=== PATIENT | female | born 1940 | race Caucasian/White ===

== ENCOUNTER → 2018-05-04 03:44 | Outpatient (CLI) | payer MEDICARE, BC, SELFPAY ==
[2018-05-04 21:28] LABS: T3,Free 3.5 pg/ml (2.8-5.3)
== END ==
PROVIDERS: PCP Family Medicine; Visit Provider Family Medicine
DX: E03.9 Hypothyroidism, unspecified (principal)
CPT/HCPCS: 36415; 84481

== ENCOUNTER → 2018-05-18 01:52 | Outpatient (CLI) | payer MEDICARE, BC, SELFPAY ==
--- NOTE | 2018-05-18 13:24 | DI.REPORT_ITS ---
SYMPTOM/DIAGNOSIS: SCREENING, Z12.31 MAMMOGRAMS: Mammograms were interpreted according to the usual protocol including computer analysis with CAD system, tomosynthesis and C view imaging. Comparison is made with exams from [id number]. The breasts are composed of scattered fibroglandular densities, breast density, category B. No suspicious masses or suspicious microcalcifications are seen. There has been no significant change. IMPRESSION: Category 1B, negative mammogram. Routine screening is recommended. [facility] ASSESSMENT OF FINDINGS: Negative. Category 1. Patient will receive a letter notifying them of these results. BI-RADS category B. There are scattered areas of fibroglandular density.
== END ==
PROVIDERS: PCP Family Medicine; Visit Provider Family Medicine
DX: Z12.31 Encounter for screening mammogram for malignant neoplasm of breast (principal)
CPT/HCPCS: 77063; 77067

== ENCOUNTER 2019-04-13 00:17 | Outpatient (CLI) | payer MEDICARE, BC, SELFPAY ==
--- NOTE | 2019-04-13 14:00 | MERGE_ITS ---
*[facility]* *[facility]* [address] [place] [address] Date of study: 04/13/2019 Transthoracic Echocardiography M-mode, complete 2D, complete spectral Doppler, and color Doppler *STUDY CONCLUSIONS* Summary: 1. Left ventricle: The cavity size was normal. Wall thickness was normal. Systolic function was normal. The estimated ejection fraction was 60-65%. Wall motion was normal; there were no regional wall motion abnormalities. Findings consistent with diastolic dysfunction. Doppler parameters are consistent with high ventricular filling pressure. 2. Aortic valve: Mildly calcified annulus. Trileaflet; normal thickness leaflets. There was mild regurgitation. 3. Right ventricle: The cavity size was normal. Wall thickness was normal. Systolic function was normal. *PATIENT PRESENTATION* Height: 139.7cm (55in ) S/D Pressure: 131 / 82 Weight: 56.7kg (124.7lb ) BSA: 1.51m^2 Test start time: 02:40 PM. Test stop time: 03:40 PM. PERFORMING Unknown PERFORMING [facility] CONSULTING Katie Karimi ORDERING Katie Karimi REFERRING Katie Karimi [employer] MACHINE OPERATOR Mali Meade, (R)(DIANA), [facility] *PROCEDURE DATA* Procedure information: This study was interpreted by [facility]. Pertinent images and digital data are archived for permanent storage and are available for subsequent review. Comparison was made to the study of 12/11/2011. Study status: Routine. Transthoracic echocardiography. M-mode, complete 2D, complete spectral Doppler, and color Doppler. A Transthoracic Echocardiogram was performed. Scanning was performed from the parasternal, apical, subcostal, and suprasternal notch acoustic windows. Images were obtained using an [id number] cardiac ultrasound machine. Image quality was adequate. Study completion: The patient tolerated the procedure well. There were no complications. History: PMH: Murmur r01.1. *CARDIAC ANATOMY* Left ventricle: The cavity size was normal. Wall thickness was normal. Systolic function was normal. The estimated ejection fraction was 60-65%. Wall motion was normal; there were no regional wall motion abnormalities. Findings consistent with diastolic dysfunction. Doppler parameters are consistent with high ventricular filling pressure. Aortic valve: Mildly calcified annulus. Trileaflet; normal thickness leaflets. Mobility was not restricted. Doppler: Transvalvular velocity was within the normal range. There was no stenosis. There was mild regurgitation. VTI ratio of LVOT to aortic valve: 0.69. Valve area (VTI): 2.1cm^2. Indexed valve area (VTI): 1.4cm^2/m^2. Peak velocity ratio of LVOT to aortic valve: 0.57. Valve area (Vmax): 1.7cm^2. Indexed valve area (Vmax): 1.1cm^2/m^2. Mean velocity ratio of LVOT to aortic valve: 0.6. Valve area (Vmean): 1.8cm^2. Indexed valve area (Vmean): 1.2cm^2/m^2. Mean gradient (S): 5.9mm Hg. Peak gradient (S): 10.5mm Hg. Aorta: Aortic root: The aortic root was normal in size. Ascending aorta: The ascending aorta was normal in size. Mitral valve: Structurally normal valve. Mobility was not restricted. Doppler: Transvalvular velocity was within the normal range. There was no evidence for stenosis. There was no significant regurgitation. Valve area by pressure half-time: 2.5cm^2. Indexed valve area by pressure half-time: 1.7cm^2/m^2. Peak gradient (D): 2.4mm Hg. Left atrium: The atrium was normal in size. Right ventricle: The cavity size was normal. Wall thickness was normal. Systolic function was normal. Pulmonic valve: Doppler: Transvalvular velocity was within the normal range. There was no evidence for stenosis. There was no significant regurgitation. Peak gradient (S): 2.3mm Hg. Tricuspid valve: Structurally normal valve. Doppler: Transvalvular velocity was within the normal range. There was no evidence for stenosis. There was no significant regurgitation. Pulmonary artery: Systolic pressure could not be accurately estimated. Right atrium: The atrium was normal in size. Pericardium: There was no pericardial effusion. Systemic veins: Inferior vena cava: Well visualized. The vessel was patent and normal in size. Respirophasic changes in dimension were absent. Measurements Left ventricle Value Reference LV ID, ED, PLAX 3.5 cm 3.5 - 6.0 LV ID, ES, PLAX 2.1 cm 2.1 - 4.0 LV PW thickness, ED, PLAX 1.1 cm LV end-diastolic volume, 1-p A2C 45 ml LV ejection fraction, 1-p A2C 74 % LV end-diastolic volume, 1-p A4C 85 ml LV ejection fraction, 1-p A4C 56 % LV e', lateral 0.04 m/sec LV E/e', lateral 19 LV e', medial 0.048 m/sec LV E/e', medial 16 LV e', average 0.044 m/sec LV E/e', average 18 Ventricular septum Value Reference IVS thickness, ED, PLAX 0.9 cm LVOT Value Reference LVOT ID, A-P 2.0 cm LVOT area 3 cm^2 LVOT peak velocity, S 0.93 m/sec LVOT mean velocity, S 0.7 m/sec LVOT VTI, S 22.8 cm LVOT peak gradient, S 3.5 mm Hg LVOT mean gradient, S 2.1 mm Hg Stroke volume (SV), LVOT DP 68 ml Stroke index (SV/bsa), LVOT DP 45 ml/m^2 Aortic valve Value Reference Aortic valve peak velocity, S 1.6 m/sec Aortic valve mean velocity, S 1.2 m/sec Aortic valve VTI, S 33.0 cm Aortic mean gradient, S 5.9 mm Hg Aortic peak gradient, S 10.5 mm Hg VTI ratio, LVOT/AV 0.69 Aortic valve area, VTI 2.1 cm^2 Velocity ratio, peak, LVOT/AV 0.57 Aortic valve area, peak velocity 1.7 cm^2 Velocity ratio, mean, LVOT/AV 0.6 Aortic valve area, mean velocity 1.8 cm^2 Aortic valve area/bsa, mean velocity 1.2 cm^2/m^2 Aorta Value Reference Aortic root ID, ED 3.3 cm Ascending aorta ID, A-P, S 3.2 cm Left atrium Value Reference LA ID, A-P, ES 1.6 cm LA ID/bsa, A-P 1.1 cm/m^2 <=2.2 LA volume/bsa, ES, 1-p A4C 45 ml/m^2 LA volume, ES, 2-p 37 ml LA volume/bsa, ES, 2-p 24 ml/m^2 LA/aortic root ratio 0.49 Mitral valve Value Reference Mitral E-wave peak velocity 0.77 m/sec Mitral A-wave peak velocity 0.96 m/sec Mitral deceleration time (H) 304 ms 150 - 230 Mitral pressure half-time 88 ms Mitral peak gradient, D 2.4 mm Hg Mitral E/A ratio, peak 0.8 Mitral valve area, PHT, DP 2.5 cm^2 Tricuspid valve Value Reference Tricuspid regurg peak velocity 2.4 m/sec Tricuspid peak RV-RA gradient 23.6 mm Hg Right atrium Value Reference RA area, ES, A4C 11.7 cm^2 8.3 - 19.5 Pulmonic valve Value Reference Pulmonic peak gradient, S 2.3 mm Hg Legend: (L) and (H) snehal values outside specified reference range. I have personally reviewed the images and have reviewed and edited the reported findings. Electronically signed by Ganga Hackett 04/13/2019 16:15
== END 2019-04-13 00:37 ==
PROVIDERS: PCP Family Medicine; Visit Provider Internal Medicine
DX: R01.1 Cardiac murmur, unspecified (principal); I50.1 Left ventricular failure, unspecified; I35.1 Nonrheumatic aortic (valve) insufficiency; I10 Essential (primary) hypertension
CPT/HCPCS: 93306

== ENCOUNTER 2019-06-06 01:07 | Outpatient (CLI) | payer MEDICARE, BC, SELFPAY ==
[2019-06-06 09:46] LABS: HCT 39.3 % (36.0-46.0); HGB 12.2 g/dL (12.0-15.5); Mean Corpuscular Hemoglobin 29.8 pg (27.0-33.0); Mean Corpuscular Volume 95.9 fL (80-95); Mean Platelet Volume 10.3 fL (8.0-11.0); Platelet Count 230 x1000/uL (130-400); White Blood Cell Count 4.24 k/cumm (4.4-10.8)
[2019-06-06 11:10] LABS: BUN 24 mg/dL (7-18); CREATININE 0.95 mg/dL (0.55-1.02); Calcium 9.2 mg/dL (8.5-10.1); Calculated LDL 113 mg/dL; Cholesterol 213 mg/dL (50-200); Estimated GFR 56.75 (mL/min/1.73m2); Glucose 104 mg/dL (70-100); HDL Cholesterol 94 mg/dL (40-60); Triglyceride 33 mg/dL (30-150)
[2019-06-06 11:11] LABS: Anion Gap 7.1 mmol/L (3-11); CO2 30.9 mmol/L (21.0-32.0); Chloride 105 mmol/L (98-107); Potassium 4.2 mmol/L (3.5-5.1); Sodium 143 mmol/L (136-145); TSH 0.73 uIU/mL (0.36-3.74)
== END 2019-06-06 01:27 ==
PROVIDERS: PCP Family Medicine; Visit Provider Family Medicine
DX: I10 Essential (primary) hypertension (principal)
CPT/HCPCS: 36415; 80048; 80061; 85027; 84443

== ENCOUNTER 2019-06-22 01:05 | Outpatient (CLI) | payer MEDICARE, BC, SELFPAY ==
--- NOTE | 2019-06-22 13:18 | DI.MAMMO_ITS ---
EXAM: MG MAMMO SCREENING CLINICAL HISTORY: screening, Z12.39. TECHNIQUE: Mammograms were interpreted according to the usual protocol including computer analysis w [employer] CAD system, tomosynthesis and C-view imaging. COMPARISON: Comparison is made with prior exams. FINDINGS: The breasts are of moderate radiodensity. There is no evidence of a mass. There are no suspicious ca lcifications and there has been no significant interval change when compared with prior images. IMPRESSION: No evidence of malignancy, category 1. Yearly screening mammography is recommended. BI-RADS categor y B. BI-RADS Cat 1 - Negative. Breast Density - Category B - Scattered areas of fibroglandular density.
== END 2019-06-22 01:25 ==
PROVIDERS: PCP Family Medicine; Visit Provider Family Medicine
DX: Z12.31 Encounter for screening mammogram for malignant neoplasm of breast (principal)
CPT/HCPCS: 77063; 77067

== ENCOUNTER 2020-03-25 15:38 | Emergency (ER) | payer MEDICARE, BC, SELFPAY ==
[2020-03-25] VITALS (12 sets, daily range): BP systolic 109–158; BP diastolic 51–79; PULSE 61–83; RESP 12–27; TEMP 36.8–37; O2SAT 91–99
--- NOTE | 2020-03-25 15:46 | ED.GENADUL_ITS ---
Discharge Plan Disposition Patient Disposition: HOME Condition: Stable Discharge Details Chief Complaint: Abd Prob Clinical Impression: Constipation, Acute pulmonary embolism Primary Care Provider: Maurice Mclaughlin ED Provider: Grisel Pineda Home Meds and New Rx's Prescriptions: New Eliquis 5 mg tablet See Rx Instructions .ROUTE .COMPLEX 30 Days Qty: 60 RF: 0 Continued albuterol sulfate [ProAir HFA] 90 mcg/actuation HFA aerosol inhaler 2 puff Inhalation Q6H PRN Qty: 1 RF: 11 multivitamin 1 EACH tablet 1 ea PO DAILY RF: 0 ibuprofen 200 MG capsule 200 mg PO PRN RF: 0 ergocalciferol (vitamin D2) 400 UNIT tablet 2 tab PO BID RF: 0 aspirin [Aspir-81] 81 MG tablet,delayed release (DR/EC) 81 mg PO DAILY RF: 0 docusate sodium [Colace] 100 MG capsule 100 mg PO BID Qty: 180 RF: 4 calcium citrate malate-vit D3 1 EACH tablet 2 ea PO BID RF: 0 magnesium amino acid chelate 100 MG tablet 2 tab PO DAILY RF: 0 SPACER 1 ea Miscellaneous Qty: 1 RF: 0 Psyllium [Metamucil] 1 EACH packet 1 ea PO DAILY PRN RF: 0 gabapentin 100 mg capsule 100 mg PO HS Qty: 90 RF: 3 bupropion HCl [Wellbutrin SR] 150 mg tablet sustained-release 12 hr 150 mg PO BID Qty: 180 RF: 4 losartan-hydrochlorothiazide [Hyzaar] 50-12.5 mg tablet 1 tab PO QAM Qty: 90 RF: 4 triamcinolone acetonide 0.1 % cream 1 applic Topical BID PRN (Reason: dermatitis) Qty: 30 RF: 3 tafwzsjzso-wbfpkyspjhseg-nspp 50-325-40 mg tablet 1 tab PO DAILY PRN (Reason: pain) Qty: 30 RF: 3 levothyroxine [Synthroid] 88 mcg tablet 88 mcg PO DAILY Qty: 90 RF: 4 Discharge Instructions Instructions: Pulmonary Embolism (ED), Constipation (ED) Additional Instructions: Drink plenty of fluids and get plenty of rest. You can try xbgo-rvm-zycekuc suppositories, stool softeners, MiraLAX or magnesium citrate for your constipation as needed. Take the Eliquis as directed. You will start with taking 10 mg twice daily for 7 days total then take 5 mg twice daily until directed to stop by her primary care doctor. You will receive a call from care management regarding a follow-up appoint with your primary care doctor for reevaluation this week and for continued management of your Eliquis for your pulmonary embolism. Return immediately to the emergency department if you develop any worsening or concerning symptoms such as fever, chest pain, shortness of breath, vomiting or any other concerns. Discharge Data Discharge Date/Time-TO BE ENTERED AT DEPARTURE: 03/25/20 21:10 Discharge Physician: Grisel Pineda Medical Decision Making 1550 -- 79-year-old female with history of COPD, hypertension, hyperlipidemia and previous PE in 2001 treated with coumadin who presents for constipation for the past 4 days and urinary retention today. Abdomen soft and tender across lower aspect. Bladder scan ~700cc. Pt had significant relief after straight cath. Patient referred for labs and imaging to rule out bowel obstruction or acute infectious process. 1800 -- Labs reviewed and unremarkable. Normal white blood cell count. UA negative. Pt was able to urinate on her own here. CT imaging noted constipation and mild fecal impaction but also noted a right lower lobe PE. Patient has no complaint of chest pain, shortness of breath with oxygen saturation in mid to high 90s and normal respiratory rate, heart rate and blood pressure. She was referred for CT chest which notes PE within right upper, middle and lower lobes. No evidence of right heart strain. Patient was offered admission, but patient states she would prefer to go home. Case discussed with hospitalist. As patient has no complaint of chest pain or shortness of breath, will plan to treat with PO Eliquis. She was given 1 dose of 10 mg Eliquis here as well as 2 doses for home. Patient placed on care management follow-up list for follow-up appointment with her primary care doctor within the next week for reassessment. 1944 -- She was also given an enema at bedside as well as rectal digital disimpaction with relief of her rectal discomfort and constipation. Patient feels good to go home Advised to follow up with the primary care doctor for re-evaluation. Usual and customary return precautions given prior to discharge. Medical Records Medical records reviewed: Yes I reviewed the patient's medical records. Imaging Data Radiologic Study: Radiologist's impression: CT Abdomen And Pelvis With Contrast Exam date and time: 03/25/2020 5:14 PM Age: 79 years old Clinical indication: Other: Constiption, urinary retention, R/O sbo TECHNIQUE: Imaging protocol: Computed tomography of the abdomen and pelvis with intravenous contrast. Radiation optimization: All CT scans at this facility use at least one of these dose optimization techniques: automated exposure control; mA and/or kV adjustment per patient size (includes targeted exams where dose is matched to clinical indication); or iterative reconstruction. Contrast material: OMNIPAQUE 350; Contrast volume: 80 ml; Contrast route: INTRAVENOUS (IV); COMPARISON: No relevant prior studies available. FINDINGS: Lungs: The visualized portions of the lung bases demonstrate no acute disease. Liver: 8 mm hypodense lesion in the right hepatic lobe on image 350 series 6 is too small to characterize but most probably benign representing a small cyst. There is mild periportal edema. The liver appears otherwise unremarkable. Gallbladder and bile ducts: No acute gallbladder pathology. Pancreas: Normal. No ductal dilation. Spleen: Normal. No splenomegaly. Adrenals: Normal. No mass. Kidneys and ureters: Bilateral sub 6 mm hypodense renal lesions are too small to characterize but most probably benign representing cysts. No follow-up is recommended at this time. No acute renal findings. No obstructive uropathy. Stomach and bowel: No bowel wall thickening, obstruction, or other acute pathology. Diffuse colonic diverticulosis is present. There is excessive colonic stool content. Significant amount of fecal material at the rectum. Appendix: No evidence of appendicitis. Intraperitoneal space: Unremarkable. No free air. No significant fluid collection. Vasculature: Filling defects in the visualized right lower lobe proximal pulmonary arterial branches, compatible with pulmonary emboli. The vasculature demonstrates diffuse moderate atherosclerotic calcification. Lymph nodes: Unremarkable. No enlarged lymph nodes. Bladder: Unremarkable as visualized. Reproductive: Unremarkable as visualized. Bones/joints: Severe thoracolumbar scoliosis. No acute abnormality or aggressive osseous lesion. Soft tissues: Unremarkable. IMPRESSION: 1. Acute pulmonary emboli in the right lower lobe proximal segmental branches. Further evaluation with dedicated PE protocol CT is recommended. 2. Severe constipation and mild rectal fecal impaction. No definitive evidence of bowel obstruction appreciated at this time. 3. No other acute abdominopelvic pathology is otherwise seen. 4. Other chronic/incidental findings as detailed above. CT Angiography Chest With Contrast Exam date and time: 03/25/2020 5:43 PM Age: 79 years old Clinical indication: Other: Rle pe noted, evaluate further TECHNIQUE: Imaging protocol: Computed tomographic angiography of the chest with intravenous contrast. 3D rendering: MIP and/or 3D reconstructed images were created by the technologist. Radiation optimization: All CT scans at this facility use at least one of these dose optimization techniques: automated exposure control; mA and/or kV adjustment per patient size (includes targeted exams where dose is matched to clinical indication); or iterative reconstruction. Contrast material: OMNIPAQEU 350; Contrast volume: 59 ml; Contrast route: INTRAVENOUS (IV); COMPARISON: No relevant prior studies available. FINDINGS: Pulmonary arteries: Acute pulmonary emboli are present within the right upper lobe posterior segmental branch as well as the right middle lobe medial segmental branch and multiple right lower lobe segmental and subsegmental branches. Aorta: No aortic aneurysm. No aortic dissection. Lungs: Left basilar subsegmental dependent atelectasis. Pleural space: No pneumothorax. No pleural effusion. Heart: No cardiomegaly. No pericardial effusion. No evidence of right ventricular strain. Lymph nodes: Unremarkable. No enlarged lymph nodes. Bones/joints: Severe thoracic scoliosis. Soft tissues: Unremarkable. IMPRESSION: Acute pulmonary emboli as described above with overall mild clot burden and no evidence of right ventricular strain. Lab Data Lab results reviewed: Yes I reviewed the patient's lab results. Labs: Laboratory Tests Range/Units 03/25/20 03/25/20 03/25/20 16:20 16:20 16:20 WBC (4.4-10.8) k/cumm 6.15 RBC (4.00-5.20) m/cumm 4.03 Hgb (12.0-15.5) g/dL 12.7 Hct (36.0-46.0) % 37.9 MCV (80-95) fL 94.0 MCH (27.0-33.0) pg 31.5 MCHC (32.0-36.0) g/dL 33.5 RDW (11.7-14.6) % 13.1 Plt Count (130-400) x1000/uL 218 MPV (8.0-11.0) fL 9.9 Immature Gran % % 0.2 Neutrophils % 82.7 Lymphocytes % 9.6 Monocytes % 6.7 Eosinophils % 0.5 Basophils % 0.3 Absolute Neutrophils (1.2-6.7) k/cumm 5.09 Absolute Lymphocytes (1.2-3.4) k/cumm 0.59 L Absolute Monocytes (0.11-0.7) k/cumm 0.41 Absolute Eosinophils (0.0-0.7) k/cumm 0.03 Absolute Basophils (0.0-0.2) k/cumm 0.02 PT (9.3-11.0) sec 10.5 INR (0.9-1.1) 1.0 APTT (21.0-31.4) sec 36.2 H Sodium (136-145) mmol/L 139 Potassium (3.5-5.1) mmol/L 3.6 Chloride (98-107) mmol/L 103 Carbon Dioxide (21.0-32.0) mmol/L 30.9 Anion Gap (3-11) mmol/L 5.1 BUN (7-18) mg/dL 16 Creatinine (0.55-1.02) mg/dL 1.05 H Estimated GFR/1.73 m2 (mL/min/1.73m2) 50.43 Glucose (74-106) mg/dL 99 Calcium (8.5-10.1) mg/dL 9.0 Magnesium (1.8-2.4) mg/dL Total Bilirubin (0.2-1.0) mg/dL 0.6 AST (15-37) U/L 24 ALT (14-59) U/L 19 Alkaline Phosphatase (46-116) U/L 90 Troponin I (<0.06) ng/mL Total Protein (6.4-8.2) g/dL 6.8 Albumin (3.4-5.0) g/dL 3.5 Urine Color (Yellow) Urine Clarity (Clear) Urine pH (5-8) Ur Specific [place] (1.005-1.025) Urine Protein (Negative) mg/dL Urine Ketones (Negative) mg/dL Urine Blood (Negative) Urine Nitrite (Negative) Urine Bilirubin (Negative) Urine Urobilinogen (Up TO 0.2) EU/dL Ur Leukocyte Esterase (Negative) Urine Glucose (Negative) mg/dL Range/Units 03/25/20 03/25/20 16:20 16:53 WBC (4.4-10.8) k/cumm RBC (4.00-5.20) m/cumm Hgb (12.0-15.5) g/dL Hct (36.0-46.0) % MCV (80-95) fL MCH (27.0-33.0) pg MCHC (32.0-36.0) g/dL RDW (11.7-14.6) % Plt Count (130-400) x1000/uL MPV (8.0-11.0) fL Immature Gran % % Neutrophils % Lymphocytes % Monocytes % Eosinophils % Basophils % Absolute Neutrophils (1.2-6.7) k/cumm Absolute Lymphocytes (1.2-3.4) k/cumm Absolute Monocytes (0.11-0.7) k/cumm Absolute Eosinophils (0.0-0.7) k/cumm Absolute Basophils (0.0-0.2) k/cumm PT (9.3-11.0) sec INR (0.9-1.1) APTT (21.0-31.4) sec Sodium (136-145) mmol/L Potassium (3.5-5.1) mmol/L Chloride (98-107) mmol/L Carbon Dioxide (21.0-32.0) mmol/L Anion Gap (3-11) mmol/L BUN (7-18) mg/dL Creatinine (0.55-1.02) mg/dL Estimated GFR/1.73 m2 (mL/min/1.73m2) Glucose (74-106) mg/dL Calcium (8.5-10.1) mg/dL Magnesium (1.8-2.4) mg/dL 2.0 Total Bilirubin (0.2-1.0) mg/dL AST (15-37) U/L ALT (14-59) U/L Alkaline Phosphatase (46-116) U/L Troponin I (<0.06) ng/mL < 0.05 Total Protein (6.4-8.2) g/dL Albumin (3.4-5.0) g/dL Urine Color (Yellow) Yellow Urine Clarity (Clear) Clear Urine pH (5-8) 7.5 Ur Specific [place] (1.005-1.025) 1.015 Urine Protein (Negative) mg/dL Negative Urine Ketones (Negative) mg/dL Negative Urine Blood (Negative) Negative Urine Nitrite (Negative) Negative Urine Bilirubin (Negative) Negative Urine Urobilinogen (Up TO 0.2) EU/dL 0.2 Ur Leukocyte Esterase (Negative) Negative Urine Glucose (Negative) mg/dL Negative ECG Data Attestation: I personally reviewed and interpreted this ECG (s) as follows: Interpretation: rate of 84, sinus, pacs vs artifact in lateral leads. No acute ST elevation or depression. MN 178, QTc 454, QRS 90. HPI General Mode of arrival: ambulatory . Date/Time Provider Initiated Documentation: 03/25/20 15:44 . Limitations to Documentation: no limitations . Information obtained by: patient . HPI Narrative: Patient is an 79-year-old female who presents the ED with a complaint of constipation for the past 4 days. She states she has been urinating normally as well until today and admits to some lower abdominal pressure. She denies any leg pain, weakness or numbness, saddle anesthesia, bowel or bladder incontinence. She denies any fever, nausea, vomiting or other urinary symptoms. She denies any recent narcotic use. She states she has a history of constipation several years ago for which she required an enema with complete relief. She denies any relief with stool softeners or Metamucil. Related Data Home Medications Medication Instructions Recorded Confirmed Spacer 1 ea MISCELLANEOUS #1 ea 03/21/13 10/21/19 aspirin [Aspir-81] 81 mg PO DAILY tab-cap 03/21/13 03/25/20 calcium citrate malate-vit D3 2 ea PO BID tab 03/21/13 03/25/20 docusate sodium [Colace] 100 mg PO BID #180 tab-cap 03/21/13 03/25/20 ergocalciferol (vitamin D2) 2 tab PO BID tab-cap 03/21/13 10/21/19 ibuprofen 200 mg PO PRN tab-cap 03/21/13 03/25/20 magnesium amino acid chelate 2 tab PO DAILY tab 03/21/13 03/25/20 multivitamin 1 ea PO DAILY tab 03/21/13 03/25/20 Psyllium [Metamucil] 1 ea PO DAILY PRN packet 04/01/13 03/25/20 gabapentin 100 mg capsule 100 mg PO HS #90 cap 02/03/19 03/25/20 bupropion HCl 150 mg tablet,12 hr 150 mg PO BID #180 tab-cap 03/03/19 03/25/20 sustained-release losartan 50 mg-hydrochlorothiazide 1 tab PO QAM #90 tab-cap 03/21/19 03/25/20 12.5 mg tablet triamcinolone acetonide 0.1 % 1 applic TOPICAL BID PRN #30 gm 09/07/19 03/25/20 topical cream albuterol sulfate 90 mcg/actuation 2 puff INHALATION Q6H PRN #1 10/21/19 03/25/20 aerosol inhaler inhaler auhlnutglo-xjurkaxblxgpd-utqixunv 1 tab PO DAILY PRN #30 tab 12/06/19 03/25/20 50 mg-325 mg-40 mg tablet levothyroxine 88 mcg tablet 88 mcg PO DAILY #90 tab-cap 03/08/20 03/25/20 apixaban [Eliquis] See Rx Instructions .ROUTE 03/25/20 .COMPLEX 30 Days #60 tab Previous Rx's Medication Instructions Recorded gabapentin 100 mg capsule 100 mg PO HS #90 cap 02/03/19 bupropion HCl 150 mg tablet,12 hr 150 mg PO BID #180 tab-cap 03/03/19 sustained-release losartan 50 mg-hydrochlorothiazide 1 tab PO QAM #90 tab-cap 03/21/19 12.5 mg tablet triamcinolone acetonide 0.1 % 1 applic TOPICAL BID PRN #30 gm 09/07/19 topical cream albuterol sulfate 90 mcg/actuation 2 puff INHALATION Q6H PRN #1 10/21/19 aerosol inhaler inhaler jwyqfallyb-bnvtjgssyynwf-vwnhwcvj 1 tab PO DAILY PRN #30 tab 12/06/19 50 mg-325 mg-40 mg tablet levothyroxine 88 mcg tablet 88 mcg PO DAILY #90 tab-cap 03/08/20 apixaban [Eliquis] See Rx Instructions .ROUTE 03/25/20 .COMPLEX 30 Days #60 tab Allergies Allergy/AdvReac Type Severity Reaction Status Date / Time adhesive Allergy Mild Unverified 03/25/20 15:53 Penicillins Allergy Unknown RASH Unverified 03/25/20 15:53 Sulfa (Sulfonamide Allergy Unknown Unverified 03/25/20 15:53 Antibiotics) nitrofurantoin AdvReac Unknown ABDOMINAL Unverified 03/25/20 15:53 PAIN, ANOREXIA doxycycline AdvReac Nausea Verified 03/25/20 15:53 Review of Systems All systems reviewed & are unremarkable except as noted in HPI and below Constitutional Constitutional: Reports as per HPI, Denies chills and Denies fever(s) Eyes Eyes: Denies blurry vision ENT Ears, Nose, Mouth, and Throat: Denies dizziness, Denies sore throat and Denies throat swelling Cardiovascular Cardiovascular: Denies chest pain and Denies dyspnea Respiratory Respiratory: Denies cough and Denies dyspnea Gastrointestinal Gastrointestinal: Denies abdominal pain, Reports constipation, Denies diarrhea and Denies vomiting Genitourinary Genitourinary: Denies hematuria and Denies dysuria Musculoskeletal Musculoskeletal: Denies back pain and Denies numbness Integumentary/Breasts Skin/Breast: Denies lesions and Denies rash Neurologic Neurologic: Denies dizziness, Denies localized weakness and Denies numbness Allergic/Immunologic Allergic/Immunologic: Denies throat swelling [facility] Medical History (Updated 03/25/20 @ 19:20 by Grisel Pineda DO) Chronic obstructive lung disease (Inactive) Essential hypertension (Inactive 10/31/13) Hypothyroidism (Inactive 08/27/94) 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 Daughter No problems noted. Maternal Grandfather No problems noted. Paternal Grandfather No problems noted. Maternal Grandmother No problems noted. Paternal Grandmother No problems noted. Social History (Updated 06/01/19 @ 13:52 by Hunter Johnson) Smoking/Tobacco Use Status: Never Alcohol Intake: current Alcohol Intake frequency: a few times a month Alcohol type: wine Drug use: Never Caregiver/Support person: No Household members: none Housing: house Communication Needs: Corrective Lenses Do you need help understanding health information?: Rarely Pets and animals: No Sexually active: No Do you think of yourself as: straight/heterosexual Current gender identity: female What is your relationship status?: How often do you talk on the phone with friends or family?: once per week How often do you get together with friends or relatives?: three or more times per week How often do you attend confucianist or roman catholic services?: 4 or more times per year Do you belong to any clubs or organized social groups?: yes Panel score (0-1 are the most socially isolated patients): 3 What type of physical activity do you participate in: other Duration: 45-60 minutes/day Frequency: 3-4 times per week Deidra/Methodist: Sabianist Special deidra needs: No Seatbelt use: always Helmet use: No Drive intox or ride w/intox yard driver: No Do you feel safe at home: Yes Exam Const General: cooperative and no acute distress Orientation: alert, awake and oriented x3 HENMT Head: normal to inspection Face and sinus: normal facial exam Eyes General: appearance normal, both eyes and all related structures EOM: EOM intact bilaterally Neck Neck: normal visual inspection and No submandibular swelling Lymphatic: no lymphadenopathy noted Chest Chest: normal inspection of the chest and no tenderness Resp Effort & Inspection: normal respiratory effort and able to speak in complete sentences Auscultation: clear to auscultation bilaterally Cardio Rate: regular rate Rhythm: regular rhythm GI Inspection: normal to inspection Palpation: soft, not firm, not rigid and tender suprapubicly Auscultation: hypoactive bowel sounds Rectal Exam - female: other (rectal exam notes stool in rectal vault but w/o erythema, edema, or lesions) Skin General skin exam: no rashes or lesions noted Neuro General: patient alert, patient awake and patient oriented x3 Cognition: normal cognition Speech: speech normal Motor: muscle tone normal throughout Sensory Exam: no sensory deficits noted Extrem General: normal to inspection, full ROM, capillary refill normal, no calf tenderness bilaterally and no edema Psych Appearance: grossly normal Mental Status: mental status grossly normal Speech and Movement: speech and movement normal Affect: normal affect
[2020-03-25] MEDS: Normal Saline Flush 10 ML SYR IVP ×3 (16:20→18:02)
[2020-03-25] MEDS: Normal Saline 500 ML IV ×2 (16:25→18:00)
[2020-03-25 16:30] LABS: Abs Immature Grans 0.01 k/cumm (0.0-0.09); Absolute Basophil Count 0.02 k/cumm (0.0-0.2); Absolute Eosinophil Count 0.03 k/cumm (0.0-0.7); Absolute Lymphocyte Count 0.59 k/cumm (1.2-3.4); Absolute Monocyte Count 0.41 k/cumm (0.11-0.7); Absolute Neutrophil Count 5.09 k/cumm (1.2-6.7); Basophils % 0.3; Eosinophils % 0.5; HCT 37.9 % (36.0-46.0); HGB 12.7 g/dL (12.0-15.5); Immature Grans % 0.2 %; Lymphocytes % 9.6; Mean Corp. HGB Concentration 33.5 g/dL (32.0-36.0); Mean Corpuscular Hemoglobin 31.5 pg (27.0-33.0); Mean Platelet Volume 9.9 fL (8.0-11.0); Monocytes % 6.7; Neutrophils % 82.7; Platelet Count 218 x1000/uL (130-400); RBC 4.03 m/cumm (4.00-5.20); RBC Distribution Width 13.1 % (11.7-14.6); White Blood Cell Count 6.15 k/cumm (4.4-10.8)
[2020-03-25 16:41] LABS: ALT 19 U/L (14-59); AST 24 U/L (15-37); Albumin 3.5 g/dL (3.4-5.0); Alkaline Phosphatase 90 U/L (46-116); Anion Gap 5.1 mmol/L (3-11); BUN 16 mg/dL (7-18); Bilirubin, Total 0.6 mg/dL (0.2-1.0); CO2 30.9 mmol/L (21.0-32.0); CREATININE 1.05 mg/dL (0.55-1.02); Chloride 103 mmol/L (98-107); Estimated GFR 50.43 (mL/min/1.73m2); Glucose 99 mg/dL (74-106); Potassium 3.6 mmol/L (3.5-5.1); Sodium 139 mmol/L (136-145); Total Protein 6.8 g/dL (6.4-8.2)
[2020-03-25 17:03] LABS: Bilirubin Negative (Negative); Blood Negative (Negative); Clarity Clear (Clear); Glucose Negative (Negative); Ketones Negative (Negative); Leukocyte Esterase Negative (Negative); Nitrite Negative (Negative); Specific Gravity 1.015 (1.005-1.025); Urobilinogen 0.2 EU/dL (Up TO 0.2); pH 7.5 (5-8)
[2020-03-25] MEDS: Omnipaque 350 MG/ML 100 ML BTL IJ ×2 (17:15→18:01)
--- NOTE | 2020-03-25 17:15 | DI.CT_ITS ---
EXAM: CT ABDOMEN PELVIS W CLINICAL HISTORY: constipation, urinary retention, r/o SBO TECHNIQUE: Imaging Protocol: Axial computed tomography images with coronal and sagittal reformatted images were created and reviewed CONTRAST MATERIAL: Intravenous: Omnipaque 350 Contrast volume:80 mL Oral: No COMPARISON: No exams were available for comparison FINDINGS: ABDOMEN: Lung Bases: There are filling defects seen in pulmonary artery branches in the right lower lobe consi stent with acute pulmonary emboli. Liver: Normal density. There is a 8 mm hypodense lesion in the inferior aspect of the right lobe of t he liver. It is too small for further characterization but likely reflects a small cyst. Portal, Superior Mesenteric, and Splenic Veins: Unremarkable. Gallbladder and Biliary Tract: No radiodense calculus or dilation. Pancreas: Normal density, no abnormal calcifications or inflammatory process. Spleen: Normal. Adrenals: No masses seen. Kidneys: Normal size, contour and axis. Bilateral nephrolithiasis. No obstructive uropathy. Tiny hy podensities seen in the kidneys. They are too small for further characterization but likely reflect small cysts. Abdominal Aorta: Abdominal portion non-dilated. Atherosclerosis. Bowel: No obstruction or bowel wall thickening. No evidence of acute appendicitis. Colonic diverticu losis but no evidence of acute diverticulitis. There is a large amount of stool seen throughout the colon. There is a large amount of stool in the rectal vault. Peritoneal Cavity: No ascites, collection or mesenteric inflammatory response. Lymph Nodes: Within normal limits. Bones: There is a marked S-type thoracolumbar scoliosis. Multilevel degenerative changes are present throughout the spine. Degenerative changes are seen in the hips bilaterally. Soft Tissues: Unremarkable. PELVIS: Bladder: Symmetric distention, no gross wall thickening. Reproductive Organs: The patient appears to be status post hysterectomy. Please correlate clinically . Lymph Nodes: Within normal limits. Bones: Please see above. IMPRESSION: 1. Acute pulmonary emboli in the right lower lobe. PE CT scan is recommended. 2. Findings of constipation with rectal fecal impaction. No evidence of obstruction. RADIATION DOSE DELIVERED: Total DLP DATA REPOSITORY: All CT scans at this facility are submitted to the National Radiology Data Registry (NRDR) Dose Index Registry (DIR) with the [employer] ([employer]). RADIATION OPTIMIZATION: All CT scans at this facility use at least one of these dose optimization te chniques: automated exposure control; mA and/or kV adjustment per patient size (includes targeted exa ms where dose is matched to clinical indication); or iterative reconstruction.
[2020-03-25] MEDS: Normal Saline - Diluent 50 ML VIAL IV ×2 (17:16→18:02)
--- NOTE | 2020-03-25 17:38 | DI.VRAD_ITS ---
Addendum created by Fly Dutton MD on 03/25/2020 5:40:08 PM EDT THIS REPORT CONTAINS FINDINGS THAT MAY BE CRITICAL TO PATIENT CARE. The findings were verbally communicated via telephone conference with hanny peres at 5:40 PM EDT on 03/25/2020. The findings were acknowledged and understood. Initial report created on 03/25/2020 5:37:40 PM EDT PROCEDURE INFORMATION: Exam: CT Abdomen And Pelvis With Contrast Exam date and time: 03/25/2020 5:14 PM Age: 79 years old Clinical indication: Other: Constiption, urinary retention, R/O sbo TECHNIQUE: Imaging protocol: Computed tomography of the abdomen and pelvis with intravenous contrast. Radiation optimization: All CT scans at this facility use at least one of these dose optimization techniques: automated exposure control; mA and/or kV adjustment per patient size (includes targeted exams where dose is matched to clinical indication); or iterative reconstruction. Contrast material: OMNIPAQUE 350; Contrast volume: 80 ml; Contrast route: INTRAVENOUS (IV); COMPARISON: No relevant prior studies available. FINDINGS: Lungs: The visualized portions of the lung bases demonstrate no acute disease. Liver: 8 mm hypodense lesion in the right hepatic lobe on image 350 series 6 is too small to characterize but most probably benign representing a small cyst. There is mild periportal edema. The liver appears otherwise unremarkable. Gallbladder and bile ducts: No acute gallbladder pathology. Pancreas: Normal. No ductal dilation. Spleen: Normal. No splenomegaly. Adrenals: Normal. No mass. Kidneys and ureters: Bilateral sub 6 mm hypodense renal lesions are too small to characterize but most probably benign representing cysts. No follow-up is recommended at this time. No acute renal findings. No obstructive uropathy. Stomach and bowel: No bowel wall thickening, obstruction, or other acute pathology. Diffuse colonic diverticulosis is present. There is excessive colonic stool content. Significant amount of fecal material at the rectum. Appendix: No evidence of appendicitis. Intraperitoneal space: Unremarkable. No free air. No significant fluid collection. Vasculature: Filling defects in the visualized right lower lobe proximal pulmonary arterial branches, compatible with pulmonary emboli. The vasculature demonstrates diffuse moderate atherosclerotic calcification. Lymph nodes: Unremarkable. No enlarged lymph nodes. Bladder: Unremarkable as visualized. Reproductive: Unremarkable as visualized. Bones/joints: Severe thoracolumbar scoliosis. No acute abnormality or aggressive osseous lesion. Soft tissues: Unremarkable. IMPRESSION: 1. Acute pulmonary emboli in the right lower lobe proximal segmental branches. Further evaluation with dedicated PE protocol CT is recommended. 2. Severe constipation and mild rectal fecal impaction. No definitive evidence of bowel obstruction appreciated at this time. 3. No other acute abdominopelvic pathology is otherwise seen. 4. Other chronic/incidental findings as detailed above. Dictated and Authenticated by: Fly Dutton MD. Ordering:AMAURY Recinos MD
[2020-03-25 18:06] LABS: PTT Activated 36.2 sec (21.0-31.4); Prothrombin Time 10.5 sec (9.3-11.0)
--- NOTE | 2020-03-25 18:10 | DI.CT_ITS ---
EXAM: CT CHEST PE CTA CLINICAL HISTORY: RLE PE noted, evaluate further. TECHNIQUE: Imaging Protocol: Axial CT angiography was performed with multi-slice acquisition and mu lti-planar and/or 3D reconstructions. CONTRAST MATERIAL: Intravenous: Omnipaque 350 Contrast volume:59 mL COMPARISON: CT CT ABDOMEN PELVIS W from 03/25/2020 FINDINGS: Pulmonary Arteries: Filling defects are seen in branches of the right upper, middle and lower lobe pu lmonary arteries consistent with acute pulmonary emboli. Tracheobronchial tree: Patent where visualized. Mediastinum and Shelley: No dominant adenopathy or fluid collection. Pulmonary parenchyma: There is an area of consolidation in the left lower lobe. This may represent a telectasis. Pneumonia cannot be excluded. Please correlate clinically. No architectural distortion . Pleura: No effusion or pneumothorax. Heart: The heart is not dilated. No coronary artery calcifications are seen. No evidence of right hea rt strain or pericardial effusion. Aorta: Thoracic aorta non-dilated. No evidence of dissection or aneurysm. Upper abdomen: Please see the report of the CT scan of the abdomen and pelvis performed earlier in . Bones: There is a marked scoliosis of the thoracolumbar spine. Degenerative changes are seen in the spine. IMPRESSION: Acute pulmonary emboli involving the right upper, middle and lower lobes. No evidence of right heart strain. RADIATION DOSE DELIVERED: Total DLP Total DLP DATA REPOSITORY: All CT scans at this facility are submitted to the National Radiology Data Registry (NRDR) Dose Index Registry (DIR) with the [employer] (ACR). RADIATION OPTIMIZATION: All CT scans at this facility use at least one of these dose optimization te chniques: automated exposure control; mA and/or kV adjustment per patient size (includes targeted exa ms where dose is matched to clinical indication); or iterative reconstruction.
[2020-03-25 18:11] LABS: Troponin I < 0.05 ng/mL (<0.06)
--- NOTE | 2020-03-25 18:54 | DI.VRAD_ITS ---
PROCEDURE INFORMATION: Exam: CT Angiography Chest With Contrast Exam date and time: 03/25/2020 5:43 PM Age: 79 years old Clinical indication: Other: Rle pe noted, evaluate further TECHNIQUE: Imaging protocol: Computed tomographic angiography of the chest with intravenous contrast. 3D rendering: MIP and/or 3D reconstructed images were created by the technologist. Radiation optimization: All CT scans at this facility use at least one of these dose optimization techniques: automated exposure control; mA and/or kV adjustment per patient size (includes targeted exams where dose is matched to clinical indication); or iterative reconstruction. Contrast material: OMNIPAQEU 350; Contrast volume: 59 ml; Contrast route: INTRAVENOUS (IV); COMPARISON: No relevant prior studies available. FINDINGS: Pulmonary arteries: Acute pulmonary emboli are present within the right upper lobe posterior segmental branch as well as the right middle lobe medial segmental branch and multiple right lower lobe segmental and subsegmental branches. Aorta: No aortic aneurysm. No aortic dissection. Lungs: Left basilar subsegmental dependent atelectasis. Pleural space: No pneumothorax. No pleural effusion. Heart: No cardiomegaly. No pericardial effusion. No evidence of right ventricular strain. Lymph nodes: Unremarkable. No enlarged lymph nodes. Bones/joints: Severe thoracic scoliosis. Soft tissues: Unremarkable. IMPRESSION: Acute pulmonary emboli as described above with overall mild clot burden and no evidence of right ventricular strain. THIS REPORT CONTAINS FINDINGS THAT MAY BE CRITICAL TO PATIENT CARE. The findings were verbally communicated via telephone conference with Dr. Lulu Pineda at 6:50 PM EDT on 03/25/2020. The findings were acknowledged and understood. Dictated and Authenticated by: Timothy Stack MD. Ordering:AMAURY Recinos MD
[2020-03-25] MEDS: Apixaban 5 MG TAB 20 MG PO (19:46)
[2020-03-25] MEDS: Apixaban 5 MG TAB 10 MG PO (19:46)
[2020-03-25] MEDS: ACETAMINOPHEN 1,000 MG/100 ML BTL 400 MG (20:05)
--- NOTE | 2020-03-26 00:29 | NUR.NOTE ---
REFERRAL FAXED TO PCP FOR FOLLOW UP CARE Nursing Note:
== END 2020-03-25 21:10 | disposition home or self-care (01) ==
LOC: ER 20:08
PROVIDERS: Emergency Provider Physician Assistant; PCP Family Medicine
DX: I26.99 Other pulmonary embolism without acute cor pulmonale (principal); Z86.711 Personal history of pulmonary embolism; R33.9 Retention of urine, unspecified; K59.00 Constipation, unspecified; J44.9 Chronic obstructive pulmonary disease, unspecified; I10 Essential (primary) hypertension
CPT/HCPCS: 36415; 51701; 71275; 80053; 93005; 96361; 96365; 99285; 74177; 81003; 83735; 84484; 85025; 85610; 85730; 93010; J0131; J3490

== ENCOUNTER 2020-04-16 02:32 | Outpatient (CLI) | payer MEDICARE, BC, SELFPAY ==
[2020-04-16 15:10] LABS: Anion Gap 4.5 mmol/L (3-11); BUN 19 mg/dL (7-18); CO2 33.5 mmol/L (21.0-32.0); CREATININE 1.04 mg/dL (0.55-1.02); Chloride 104 mmol/L (98-107); Estimated GFR 50.99 (mL/min/1.73m2); Glucose 99 mg/dL (74-106); Sodium 142 mmol/L (136-145)
== END 2020-04-16 02:52 ==
PROVIDERS: PCP Family Medicine; Visit Provider Family Medicine
DX: I10 Essential (primary) hypertension (principal); I25.10 Atherosclerotic heart disease of native coronary artery without angina pectoris
CPT/HCPCS: 36415; 80048

== ENCOUNTER 2020-06-08 03:53 | Outpatient (CLI) | payer MEDICARE, BC, SELFPAY ==
[2020-06-08 12:47] LABS: TSH 0.31 uIU/mL (0.36-3.74)
== END 2020-06-08 04:13 ==
PROVIDERS: PCP Nurse Practitioner; Visit Provider Family Medicine
DX: R60.9 Edema, unspecified (principal)
CPT/HCPCS: 36415; 84443

== ENCOUNTER 2020-06-25 01:54 | Outpatient (CLI) | payer MEDICARE, BC, SELFPAY ==
--- NOTE | 2020-06-25 08:04 | DI.MAMMO_ITS ---
EXAM: MAMMO SCREENING CLINICAL HISTORY: screening,Z12.39 TECHNIQUE: Mammograms were interpreted according to the usual protocol including computer analysis w [employer] CAD system, tomosynthesis and C-view imaging. COMPARISON: 2010 through 2018 FINDINGS: The breasts are composed of scattered fibroglandular densities, Breast Density category B. No suspicious masses or suspicious microcalcifications are seen. No skin thickening or abnormal axillary lymph nodes are seen. There has been no significant change from prior exams. IMPRESSION: BI-RADS Category 1, Negative mammogram Yearly screening mammography is recommended. Breast Density - Category B, scattered fibroglandular densities. A negative radiographic report should not delay biopsy if a dominant or clinically suspicious mass is present. Up to ten percent of cancers are not identified on mammography. A negative report may reinforce clinical impression. Adenosis and dense breasts may obscure an underlying neoplasm. False positive reports average 6 to 10%. Patient will receive a letter notifying them of these results.
== END 2020-06-25 02:14 ==
PROVIDERS: PCP Nurse Practitioner; Visit Provider Family Medicine
DX: Z12.31 Encounter for screening mammogram for malignant neoplasm of breast (principal)
CPT/HCPCS: 77063; 77067

== ENCOUNTER 2020-11-22 10:33 | Outpatient (CLI) | payer MEDICARE, BC, SELFPAY ==
--- NOTE | 2020-11-22 10:00 | DI.RAD_ITS ---
EXAM: XR KNEE RT 4V AP,LAT,MALINDA,PAT CLINICAL HISTORY: rt knee pain. TECHNIQUE: 2D digital imaging was performed. COMPARISON: No exams were available for comparison FINDINGS: There is no evidence of fracture. Small joint effusion. Degenerative changes are noted in the later al compartment. Also significant degenerative changes in the medial aspect of the patellofemoral com partment. There is relative preservation of height of the medial compartment. No osseous lesions. Calcifications are noted posteriorly which are probably in the popliteal artery. IMPRESSION: Osteoarthritic degenerative changes as described above. DATA REPOSITORY: RADIATION DOSE DELIVERED:
== END 2020-11-22 10:34 | disposition home or self-care (01) ==
LOC: DIORS 10:33
PROVIDERS: PCP Nurse Practitioner; Referring Provider Nurse Practitioner; Visit Provider Student in an Organized Health Care Education/Training Program
DX: M17.11 Unilateral primary osteoarthritis, right knee (principal); M25.461 Effusion, right knee; M25.561 Pain in right knee
CPT/HCPCS: 99213; 73564

== ENCOUNTER → 2020-12-21 10:29 | Outpatient (BNVA) | payer MEDICARE, BC, SELFPAY | PROVIDERS: PCP Nurse Practitioner; Referring Provider Chiropractor Orthopedic; Visit Provider Physician Assistant | DX: M17.11 Unilateral primary osteoarthritis, right knee (principal) | CPT/HCPCS: 20610; J1040 ==

== ENCOUNTER → 2021-04-12 08:50 | Outpatient (BNVA) | payer MEDICARE, BC, SELFPAY | PROVIDERS: PCP Nurse Practitioner; Referring Provider Nurse Practitioner; Visit Provider Student in an Organized Health Care Education/Training Program | DX: M17.11 Unilateral primary osteoarthritis, right knee (principal); Z98.890 Other specified postprocedural states | CPT/HCPCS: 99213 ==

== ENCOUNTER 2021-08-12 03:43 | Outpatient (CLI) | payer MEDICARE, BC, SELFPAY ==
[2021-08-12 14:26] LABS: CREATININE 1.1 mg/dL (0.55-1.02); Estimated GFR 47.67 (mL/min/1.73m2); Potassium 4.6 mmol/L (3.5-5.1); TSH 0.39 uIU/mL (0.36-3.74)
== END 2021-08-12 03:44 | disposition home or self-care (01) ==
LOC: LBO 03:43
PROVIDERS: PCP Nurse Practitioner; Visit Provider Nurse Practitioner
DX: I10 Essential (primary) hypertension (principal); E03.9 Hypothyroidism, unspecified
CPT/HCPCS: 36415; 82565; 84132; 84443

== ENCOUNTER 2021-08-29 00:42 | Outpatient (CLI) | payer MEDICARE, BC, SELFPAY ==
--- NOTE | 2021-08-29 15:24 | DI.MAMMO_ITS ---
Exam(s) MAMMO SCREENING EXAM: MAMMO SCREENING CLINICAL HISTORY: screening,z12.39. TECHNIQUE: Bilateral full field digital CC and MLO mammographic images were obtained with 3D tomosyn thesis and utilizing computer aided detection (CAD). COMPARISON: Prior mammograms dating back to 2012, the most recent being May 2020. FINDINGS: There are no CAD designations There are no new spiculated masses nor malignant appearing microcalcification groups. There is no significant architectural distortion nor skin thickening-retraction. IMPRESSION: No radiographic evidence of malignancy. BI-RADS Category 1 - Negative Breast Density - Category B - Scattered areas of fibroglandular density Breast density Category C or D implies that the patient has dense breast tissue. Dense breast tissue can make it harder to find cancer on a mammogram. Dense breast tissue is also associated with an incr eased risk of breast cancer. This information about the result of the mammogram report was provided to the patient to raise their awareness. Use this report when you speak with the patient about their risks for breast cancer, which includes their family history. At that time, you may recommend additional screening tests (Ultrasoun d or MRI) as these tests may add significant information. A negative radiographic report should not delay biopsy if a dominant or clinically suspicious mass is present. Up to ten percent of cancers are not identified on mammography. A negative report may reinforce clinical impression. Adenosis and dense breasts may obscure an underlying neoplasm. False positive reports average 6 to 10%. Patient will receive a letter notifying them of these results.
== END 2021-08-29 01:02 ==
PROVIDERS: PCP Nurse Practitioner; Visit Provider Nurse Practitioner
DX: Z12.31 Encounter for screening mammogram for malignant neoplasm of breast (principal)
CPT/HCPCS: 77063; 77067

== ENCOUNTER 2022-04-14 17:04 | Emergency (ER) | payer MEDICARE, BC, SELFPAY ==
[2022-04-14 17:10] VITALS: BP 125/79; PULSE 107; RESP 20; TEMP 36.6; O2SAT 95
[2022-04-14 17:14] VITALS: RESP 20
--- NOTE | 2022-04-14 17:30 | DI.RAD_ITS ---
Exam(s) XR CHEST 2V PA LATERAL EXAM: XR CHEST 2V PA LATERAL CLINICAL HISTORY: Chemical Inhalation. TECHNIQUE: 2D digital imaging was performed. COMPARISON: CR CHEST 2 VIEWS PA,LAT from 11/20/2011 FINDINGS: 2 views: There is again noted severe scoliosis convex right in the thoracic spine and convex left in the lumba r spine. Also hiatal hernia. Heart size upper normal mediastinum is not widened. Lungs are clear. No infiltrates nor pleural effusions. IMPRESSION: No acute pulmonary findings.Scoliosis again evident. DATA REPOSITORY: RADIATION DOSE DELIVERED:
--- NOTE | 2022-04-14 18:16 | W.ED.GENAD ---
Discharge Plan Disposition Patient Disposition: HOME Condition: Stable Discharge Details Clinical Impression: Accidental exposure to bleach Primary Care Provider: Jayde Preciado ED Provider: Holly Wilkerson Home Meds and New Rx's Prescriptions: Continued rivaroxaban 20 mg tablet 20 mg PO DAILY Qty: 90 4RF Rx Instructions: must administer with evening meal Shingrix (PF) 50 mcg/0.5 mL suspension for reconstitution 0.5 ml IM ONCE Qty: 1 1RF Rx Instructions: as a single dose multivitamin 1 EACH tablet 1 ea PO DAILY ergocalciferol (vitamin D2) 400 UNIT tablet 2 tab PO BID docusate sodium [Colace] 100 MG capsule 100 mg PO BID Qty: 180 calcium citrate malate-vit D3 1 EACH tablet 2 ea PO BID magnesium amino acid chelate 100 MG tablet 2 tab PO DAILY SPACER 1 ea Miscellaneous Qty: 1 Rx Instructions: DX: ASTHMA Psyllium [Metamucil] 1 EACH packet 1 ea PO DAILY PRN albuterol sulfate [ProAir HFA] 90 mcg/actuation HFA aerosol inhaler 2 puff Inhalation Q6H PRN Qty: 1 11RF levothyroxine [Synthroid] 88 mcg tablet 88 mcg PO DAILY Qty: 90 4RF losartan-hydrochlorothiazide [Hyzaar] 50-12.5 mg tablet 1 tab PO QAM Qty: 90 4RF kiuqizcgov-rwacdyemvvefg-uprn 50-300-40 mg capsule 1 cap PO DAILY PRN (Reason: headache) Qty: 30 5RF bupropion HCl [Wellbutrin SR] 150 mg tablet sustained-release 12 hr 150 mg PO BID Qty: 180 4RF No Action triamcinolone acetonide 0.1 % cream 1 applic Topical BID PRN (Reason: dermatitis) Qty: 30 3RF Rx Instructions: Apply to finger Discharge Instructions Instructions: Chemical Skin Burn (ED) Additional Instructions: Accidental bleach inhalation can cause inflammation to your skin. Please return to the ER if you vomit up any thing else like blood or coughed any blood, coffee-ground or any concerns. Please return if you have worsening shortness of breath. Chest x-ray is within normal limits at this time. Follow up with primary care provider in 3-5 days. Return to ED sooner if any worsening or concerns. Increase oral fluids. Referrals: Jayde Preciado, TAR PROCESSING TECHNICIAN [Primary Care Provider] - 5 days Medical Decision Making 81-year-old female presents to the ER with chief complaint of bleach inhalation which occurred 2 hours prior to arrival. Patient reports that she was cleaning her toilets with a new hospital cleaner [employer]ox bleach when her throat began burning and she began coughing. She lives alone and she was afraid so she came to the ER. She does have a history of COPD and scoliosis, PE, hypertension and hypothyroidism, osteoarthritis. She is speaking in full sentences no stridor no wheezes noted no increased work of breathing. She does use albuterol inhaler but she did not use this prior to arrival. The burning in her throat has now subsided. No other associated symptoms. Chest x-ray ordered and dexamethasone 10 mg p.o. ordered. Will instruct patient she can use her albuterol inhaler. Chest x-ray shows no acute allergy to the lung. There is severe scoliosis and arthrosclerotic aorta. Patient has remained hemodynamically stable throughout the remainder of the day. Will discharge patient home with strict return instructions. This text was generated using [employer] system, please disregard any oddities of phrase or misspellings. HPI General Mode of arrival: ambulatory. Date/Time Provider Initiated Documentation: 04/14/22 17:25. Limitations to Documentation: no limitations. Information obtained by: patient, RN notes reviewed and old records reviewed. HPI Narrative: 81-year-old female presents to the ER with chief complaint of bleach inhalation which occurred 2 hours prior to arrival. Patient reports that she was cleaning her toilets with a new hospital cleaner Clorox bleach when her throat began burning and she began coughing. She lives alone and she was afraid so she came to the ER. She does have a history of COPD and scoliosis, PE, hypertension and hypothyroidism, osteoarthritis. She is speaking in full sentences no stridor no wheezes noted no increased work of breathing. She does use albuterol inhaler but she did not use this prior to arrival. The burning in her throat has now subsided. No other associated symptoms. Related Data Home Medications Medication Instructions Recorded Confirmed Spacer 1 ea miscellaneous #1 ea 03/21/13 01/28/22 calcium citrate malate 250 2 ea PO BID 03/21/13 04/14/22 mg-vitamin D3 2.5 mcg (100 unit) tablet docusate sodium 100 mg capsule 100 mg PO BID #180 tab-caps 03/21/13 04/14/22 (Colace) ergocalciferol (vitamin D2) 10 mcg 2 tab PO BID 03/21/13 04/14/22 (400 unit) tablet magnesium amino acid chelate 100 2 tab PO DAILY 03/21/13 04/14/22 mg tablet multivitamin 1 ea PO DAILY 03/21/13 04/14/22 Psyllium [Metamucil] 1 ea PO DAILY PRN 04/01/13 01/28/22 triamcinolone acetonide 0.1 % 1 applic topical BID PRN 09/07/19 04/14/22 topical cream dermatitis #30 grams albuterol sulfate 90 mcg/actuation 2 puff inhalation Q6H PRN ##1 10/02/20 04/14/22 aerosol inhaler (ProAir HFA) rivaroxaban 20 mg tablet 20 mg PO DAILY #90 tabs 08/02/21 04/14/22 levothyroxine 88 mcg tablet 88 mcg PO DAILY #90 tab-caps 11/25/21 04/14/22 (Synthroid) losartan 50 mg-hydrochlorothiazide 1 tab PO QAM #90 tab-caps 11/25/21 04/14/22 12.5 mg tablet (Hyzaar) bqpdguisas-yudjaqmbbjxyw-ldhjtipv 1 cap PO DAILY PRN headache #30 12/05/21 04/14/22 50 mg-300 mg-40 mg capsule tabs varicella-zoster glycoE [id number] 0.5 ml IM ONCE #1 ea 01/28/22 04/14/22 adj(PF) 50 mcg/0.5 mL IM susp, kit (Shingrix (PF)) bupropion HCl 150 mg tablet,12 hr 150 mg PO BID #180 tab-caps 03/10/22 04/14/22 sustained-release (Wellbutrin SR) Previous Rx's Medication Instructions Recorded triamcinolone acetonide 0.1 % 1 applic topical BID PRN 09/07/19 topical cream dermatitis #30 grams albuterol sulfate 90 mcg/actuation 2 puff inhalation Q6H PRN ##1 10/02/20 aerosol inhaler (ProAir HFA) rivaroxaban 20 mg tablet 20 mg PO DAILY #90 tabs 08/02/21 levothyroxine 88 mcg tablet 88 mcg PO DAILY #90 tab-caps 11/25/21 (Synthroid) losartan 50 mg-hydrochlorothiazide 1 tab PO QAM #90 tab-caps 11/25/21 12.5 mg tablet (Hyzaar) vzbrnbwqix-nfenshymeffew-wvirjlxf 1 cap PO DAILY PRN headache #30 12/05/21 50 mg-300 mg-40 mg capsule tabs varicella-zoster glycoE [id number] 0.5 ml IM ONCE #1 ea 01/28/22 adj(PF) 50 mcg/0.5 mL IM susp, kit (Shingrix (PF)) bupropion HCl 150 mg tablet,12 hr 150 mg PO BID #180 tab-caps 03/10/22 sustained-release (Wellbutrin SR) Allergies Allergy/AdvReac Type Severity Reaction Status Date / Time adhesive Allergy Mild Verified 04/14/22 17:13 Penicillins Allergy Unknown RASH Verified 04/14/22 17:13 Sulfa (Sulfonamide Allergy Unknown Verified 04/14/22 17:13 Antibiotics) apixaban Allergy rash Verified 04/14/22 17:13 nitrofurantoin AdvReac Unknown ABDOMINAL Verified 04/14/22 17:13 PAIN, ANOREXIA doxycycline AdvReac Nausea Verified 04/14/22 17:13 General Stated Complaint: ChemExpose TRAVON: 4 Review of Systems All systems reviewed & are unremarkable except as noted in HPI and below ENT Ears, Nose, Mouth, and Throat: Reports sore throat Respiratory Respiratory: Reports cough and Denies hemoptysis PFSH All Active Problems (Updated 04/14/22 @ 19:03 by Holly Wilkerson NP) Accidental exposure to bleach (Acute) Degenerative joint disease of right knee (Acute) Daniel Lopez, also seeing Dr. Perez Hypothyroidism (Acute 08/27/94) Hypertension (Chronic) Pulmonary embolism (Chronic) Insomnia (Acute) Frequent falls (Acute) Venous insufficiency (chronic) (peripheral) (Acute 04/16/17) Peripheral neuralgia (Acute) toes only- Generalized osteoarthrosis (Acute) DJD right hip Urinary, incontinence, stress female (Acute) Medical History Candidal vulvovaginitis recurrent Cardiac murmur Echocardiogram ordered. 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 Daughter No problems noted. Maternal Grandfather No problems noted. Paternal Grandfather No problems noted. Maternal Grandmother No problems noted. Paternal Grandmother No problems noted. Sister , 9 months No problems noted. Social History Smoking/Tobacco Use Status: Never Second Hand Exposure: Yes Smoking risk assessment performed?: Yes Alcohol Intake: current Alcohol Intake frequency: holidays/special occasions only Alcohol type: wine Drug use: Never Substance use type: does not use Caregiver/Support person: No Household members: none Housing: house Communication Needs: None Do you need help understanding health information?: Rarely Pets and animals: No Sexually active: No Do you think of yourself as: straight/heterosexual What is your relationship status?: How often do you talk on the phone with friends or family?: three or more times per week How often do you get together with friends or relatives?: twice per week How often do you attend orthodox or moravian services?: 4 or more times per year Do you belong to any clubs or organized social groups?: yes Panel score (0-1 are the most socially isolated patients): 3 What type of physical activity do you participate in: aerobic Duration: 45-60 minutes/day Frequency: 1-2 times per week Deidra/Restoration: Taoist Special deidra needs: No Seatbelt use: always Helmet use: No Drive intox 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 Appears stated age. Normal body habitus. Head: Normocephalic, no trauma. Eyes: Pupils PERRL, Red reflex noted, EOM's intact. Eyelids symmetrical without lesions, discharge, or swelling. ENT: Bilateral TM's WNL, External ear normal to inspection, no mastoid TTP, swelling, or erythema, Nasal turbinates WNL, no nasal discharge. Normal dentition, Posterior pharynx WNL, no exudate. Chest: RRR, Normal S1, S2, distal pulses intact. Resp: Lungs clear to auscultation bilaterally, no wheezes, rales, or rhonchi. Abdomen: Soft, non-distended, Normoactive bowel sounds all 4 quads. Musculoskeletal: Scoliosis, Skin: No suspicious rashes or lesions. Capillary refill less than 2 sec. Neurologic: Cranial nerves II-XII intact. Alert and oriented x 3. Motor: No deficits noted. Sensory: Intact bilaterally all 4 extremities. Reflexes: DTR's intact bilaterally.. Hematologic/Lymphatic: No ecchymosis, no lymphadenopathy. Course Vital Signs Vital signs: Vital Signs Temperature 36.6 C 04/14/22 17:10 Pulse 107 H 04/14/22 17:10 Respiratory Rate 20 04/14/22 17:10 Blood Pressure 125/79 04/14/22 17:10 Pulse Oximetry 95 04/14/22 17:10 Temperature 36.6 C 04/14/22 17:10 Temperature Source Temporal Artery Scan 04/14/22 17:10 Pulse 107 H 04/14/22 17:10 Respiratory Rate 20 04/14/22 17:14 Respiratory Effort 04/14/22 17:14 Respiratory Depth Normal 04/14/22 17:14 Respiratory Pattern Normal 04/14/22 17:14 Blood Pressure 125/79 04/14/22 17:10 Blood Pressure Position Sitting 04/14/22 17:10 Pulse Oximetry 95 04/14/22 17:10 Oxygen Delivery Method Room Air 04/14/22 17:10 Oxygen Flow Rate 0 04/14/22 17:10 Pain Level 0 04/14/22 17:10
[2022-04-14] MEDS: Dexamethasone 10 MG/ML VIAL PO (18:32)
--- NOTE | 2022-04-14 18:47 | DI.VRAD_ITS ---
PROCEDURE INFORMATION: Exam: XR Chest Exam date and time: 04/14/2022 6:23 PM Age: 81 years old Clinical indication: Other: Chemical inhalation TECHNIQUE: Imaging protocol: Radiologic exam of the chest. Views: 2 views. COMPARISON: 1. CT CHEST PE CTA 03/25/2020 6:[address] ABDOMEN PELVIS W 03/25/2020 5:09 PM FINDINGS: Lungs: Unremarkable. No consolidation. Pleural spaces: Unremarkable. No pleural effusion. No pneumothorax. Heart/Mediastinum: There is a hiatal hernia. The cardiac, mediastinal and hilar silhouettes appeared within normal limits. Vasculature: There are arteriosclerotic changes of the aorta. Bones/joints: There is a severe S-shaped scoliosis of the thoracolumbar spine. IMPRESSION: Severe S-shaped scoliosis of the thoracolumbar spine. Arteriosclerotic changes of the aorta. Hiatal hernia. Dictated and Authenticated by: Reynaldo Dyer MD. Ordering:YULIA Barrera MD
[2022-04-14 19:16] VITALS: BP 125/79; PULSE 107; RESP 20; TEMP 36.6; O2SAT 95
== END 2022-04-14 19:16 | disposition home or self-care (01) ==
PROVIDERS: Emergency Provider Registered Nurse Emergency; PCP Nurse Practitioner
DX: T54.91XA Toxic effect of unspecified corrosive substance, accidental (unintentional), initial encounter (principal); J02.9 Acute pharyngitis, unspecified
CPT/HCPCS: 99283; 71046; J1100

== ENCOUNTER 2022-08-28 03:48 | Outpatient (CLI) | payer MEDICARE, BC, SELFPAY ==
[2022-08-28 12:53] LABS: HCT 37.9 % (36.0-46.0); HGB 12.2 g/dL (11.2-15.7); MCH 30.4 pg (27.0-33.0); MCHC 32.2 % (32.0-36.0); MCV 95 fL (80-95); MPV 10.7 fL (8.0-11.0); Platelet Count 222 10^3/uL (130-400); RBC 4.01 10^6/uL (3.93-5.22); RDW 12.5 % (11.7-14.6); RDW-SD 43.8 fL; WBC 3.89 10^3/uL (4.4-10.8)
[2022-08-28 13:18] LABS: ALT 28 U/L (14-59); AST 31 U/L (15-37); Albumin 3.8 g/dL (3.4-5.0); Alkaline Phosphatase 94 U/L (46-116); Anion Gap 6.3 mmol/L (3-11); BUN 24 mg/dL (7-18); Bilirubin, Total 0.8 mg/dL (0.2-1.0); CO2 31.7 mmol/L (21.0-32.0); CREATININE 1.2 mg/dL (0.55-1.02); Calcium 9.3 mg/dL (8.5-10.1); Chloride 102 mmol/L (98-107); Estimated GFR 45.19 (mL/min/1.73m2); Glucose 102 mg/dL (74-106); Potassium 3.5 mmol/L (3.5-5.1); Sodium 140 mmol/L (136-145); TSH (W/Ref FT4) 1.35 uIU/mL (0.36-3.74)
== END 2022-08-28 03:49 | disposition home or self-care (01) ==
LOC: LOS 03:49
PROVIDERS: PCP Nurse Practitioner Family; Visit Provider Nurse Practitioner Family
DX: E03.9 Hypothyroidism, unspecified (principal); G47.00 Insomnia, unspecified; I10 Essential (primary) hypertension; R29.6 Repeated falls
CPT/HCPCS: 36415; 80053; 85027; 84443

== ENCOUNTER 2022-12-21 04:44 | Emergency (ER) | payer MEDICARE, BC, SELFPAY ==
[2022-12-21] VITALS (24 sets, daily range): BP systolic 131–169; BP diastolic 64–83; PULSE 66–81; RESP 12–29; TEMP 36.3; O2SAT 92–99
--- NOTE | 2022-12-21 05:15 | DI.CT_ITS ---
Exam(s) CT THORACIC LUMBAR SPINE WO EXAM: CT THORACIC LUMBAR SPINE WO CLINICAL HISTORY: s/p fall, hit back, r/o fx, tender mid tspine. TECHNIQUE: Imaging Protocol: Axial, coronal and sagittal images were reconstructed utilizing bone an d soft tissue algorithm.. COMPARISON: CT CT CHEST PE CTA from 03/25/[address] ABDOMEN PELVIS W from 03/25/2020 CR,XR XR CHEST 2V PA LATERAL from 04/14/2022 FINDINGS: Thoracic spine: Bones: there is severe dextro scoliosis in the thoracic region.. There is a nondisplaced spinous pro cess fracture in the mid thoracic region. No vertebral body fractures. No visualized rib fractures. Lungs: Atelectasis versus consolidation at left lung base. Soft tissues: The soft tissues of the chest are unremarkable. No large disk herniations are identifie d. Lumbar spine: No fracture is identified. Severe degenerative disc changes and facet degenerative changes are prese nt. Severe levoscoliosis thoracolumbar junction Soft tissues: . No paraspinal hematoma. IMPRESSION: Single spinous process fracture of the mid thoracic region. No additional fractures in the thoracic or lumbar spine. Severe biconvex thoracolumbar scoliosis and degenerative changes. RADIATION DOSE DELIVERED: 1,495.45mGy.cm Total DLP DATA REPOSITORY: All CT scans at this facility are submitted to the National Radiology Data Registry (NRDR) Dose Index Registry (DIR) with the [employer] ([employer]). RADIATION OPTIMIZATION: All CT scans at this facility use at least one of these dose optimization te chniques: automated exposure control; mA and/or kV adjustment per patient size (includes targeted exa ms where dose is matched to clinical indication); or iterative reconstruction.
--- NOTE | 2022-12-21 05:15 | DI.CT_ITS ---
Exam(s) CT HEAD CERVICAL SPINE WO EXAM: CT HEAD CERVICAL SPINE WO CLINICAL HISTORY: s/p head injury, on xarelto, r/o bleed/fx. TECHNIQUE: Imaging Protocol: Axial computed tomography images with coronal and sagittal reformatted images were created and reviewed COMPARISON: CT HEAD WITHOUT CONTRAST from 04/11/2017 FINDINGS: Head CT Ventricles and Extra axial spaces: Normal in size and morphology for the patient's age. Hemorrhage: None. Cerebral parenchyma: Mild atrophy. Mild white matter changes consistent with microvascular disease. Midline shift: None. Brainstem/Cerebellum: Normal. Calvarium: Normal. Scalp contusion near vertex. Visualized Paranasal sinuses/Mastoids: Clear. Cervical Spine CT BONES: Vertebral body heights are maintained. Alignment is normal. There is no evidence of acute frac ture. Degenerative disc changes and facet degenerative changes are seen . SOFT TISSUES: No paraspinal hematoma. The airway appears intact. No pneumothorax is seen at the lung apices. IMPRESSION: Head CT: Scalp contusion. No acute intracranial abnormality. C-spine CT: Degenerative changes, no acute abnormality. RADIATION DOSE DELIVERED: 1,688.92mGy.cm Total DLP DATA REPOSITORY: All CT scans at this facility are submitted to the National Radiology Data Registry (NRDR) Dose Index Registry (DIR) with the [employer] (ACR). RADIATION OPTIMIZATION: All CT scans at this facility use at least one of these dose optimization te chniques: automated exposure control; mA and/or kV adjustment per patient size (includes targeted exa ms where dose is matched to clinical indication); or iterative reconstruction.
--- NOTE | 2022-12-21 05:31 | ED.GENADUL_ITS ---
Discharge Plan Disposition Patient Disposition: Home Condition: Stable Discharge Details Clinical Impression: Fall, Closed head injury without loss of consciousness, Back contusion Primary Care Provider: Lucita Levin ED Provider: Grisel Pineda Home Meds and New Rx's Prescriptions: Continued mometasone 0.1 % cream 1 applic topical DAILY 21 Days Qty: 45 1RF Rx Instructions: both ears multivitamin 1 EACH tablet 1 ea PO DAILY docusate sodium [Colace] 100 MG capsule 100 mg PO BID Qty: 180 SPACER 1 ea Miscellaneous Qty: 1 Rx Instructions: DX: ASTHMA triamcinolone acetonide 0.1 % cream 1 applic Topical BID PRN (Reason: dermatitis) Qty: 30 3RF Rx Instructions: Apply to finger fmlojgettv-bfbntsutafegd-mfuk 50-300-40 mg capsule 1 cap PO DAILY PRN (Reason: headache) Qty: 30 2RF rivaroxaban 20 mg tablet 20 mg PO DAILY Qty: 90 3RF Rx Instructions: must administer with evening meal losartan 50 mg tablet 50 mg PO DAILY Qty: 90 3RF Rx Instructions: To be taken with 25 mg tablet for a total dose of 75 mg losartan 25 mg tablet 25 mg PO DAILY Qty: 90 3RF levothyroxine [Synthroid] 88 mcg tablet 88 mcg PO DAILY Qty: 90 4RF bupropion HCl [Wellbutrin SR] 150 mg tablet sustained-release 12 hr 150 mg PO BID Qty: 180 4RF albuterol sulfate [ProAir HFA] 90 mcg/actuation HFA aerosol inhaler 2 puff Inhalation Q6H PRN Qty: 1 11RF Discharge Instructions Instructions: Fall Prevention for Older Adults (ED), Head Injury (ED), Contusion in Adults (ED) Additional Instructions: Your CT scan imaging today is reassuring and shows no evidence of fracture or acute concerning findings. Drink plenty of fluids and get plenty of rest. Take Tylenol as needed directed for pain. Follow-up with your primary care doctor in 1 week. Return to the emergency department with any worsening or new concerning symptoms worsening headaches, persistent vomiting, arm or leg weakness or numbness or any other concerns. Discharge Data Discharge Date/Time-TO BE ENTERED AT DEPARTURE: 12/21/22 08:20 Discharge Physician: Grisel Pineda Medical Decision Making [id number] -- 82-year-old female with a history of pulmonary embolism on Xarelto, hypertension, hypothyroidism, COPD and frequent falls who presents for head injury after mechanical fall. Also complaining of neck and upper back pain. Patient appears comfortable and nontoxic. No obvious evidence of head trauma. She has midline C and T-spine tenderness. Full range of motion of bilateral upper and lower extremities without evidence of significant pain, trauma or deformity. Chest and abdomen nontender. Considering her age and history in addition to anticoagulation, will refer for CT head, C, T and L-spine [facility]. 0800 --long delay in CT imaging results. CT imaging reviewed and negative for acute findings. Patient feels better and feels comfortable going home. Will need to secure transportation. [employer] will call care managers to determine a ride home. Medical Records Medical records reviewed: Yes I reviewed the patient's medical records. Imaging Data Radiologic Study: Radiologist's impression: CT Head Without Contrast Exam date and time: 12/21/2022 5:39 AM Age: 82 years old Clinical indication: Injury or trauma; Fall; Blunt trauma (contusions or hematomas); Consciousness not specified TECHNIQUE: Imaging protocol: Computed tomography of the head without contrast. COMPARISON: CT HEAD WITHOUT CONTRAST 04/11/2017 2:42 PM FINDINGS: Brain: There is no evidence for large acute cortical infarct. No intracranial hemorrhage or extraaxial collection is identified. There is no significant intracranial mass effect. Intracranial atherosclerotic vascular calcifications are again present. Cerebral ventricles: The ventricles and sulci are moderately prominent, in concordance with moderate global atrophy. This is mildly progressive. Paranasal sinuses: Visualized sinuses are unremarkable. No fluid levels. Mastoid air cells: Visualized mastoid air cells are well aerated. Bones/joints: Unremarkable. No acute fracture. Soft tissues: There is a scalp contusion at the high left convexity. IMPRESSION: No CT evidence for acute intracranial abnormality. CT Cervical Spine Without Contrast Exam date and time: 12/21/2022 5:39 AM Age: 82 years old Clinical indication: Injury or trauma; Fall; Blunt trauma (contusions or hematomas); Consciousness not specified TECHNIQUE: Imaging protocol: Computed tomography of the cervical spine without contrast. COMPARISON: None provided. FINDINGS: Bones/joints: Vertebral body heights are intact. There are grade 1 spondylolistheses at C4-C5 and C5-C6. Spinal alignment is otherwise maintained. Productive changes are present about the dens and anterior C1 arch with adjacent degenerative ligamentous calcifications. The bones appear osteopenic. No acute fracture is identified. Discs/Spinal canal/Neural foramina: There is multilevel spondylosis with variable osteophytic encroachment of several neural foramina. CT is not optimal for the evaluation of the discs, neural foramina or spinal canal or cord. No significant spinal stenosis is evident. Lungs: There is some scarring at the lung apices. Pleural spaces: No apical pneumothorax is identified. Vasculature: Atherosclerotic vascular calcifications are noted. Soft tissues: The prevertebral soft tissues are not significantly swollen. IMPRESSION: 1. ? No acute fracture or dislocation identified. 2. ? Spondylosis without significant spinal stenosis evident. The discs and integrity of the cord could be better evaluated by means of MRI as clinically appropriate. 3. ? Apparent osteopenia. CT Thoracic Spine Without Contrast Exam date and time: 12/21/2022 5:51 AM Age: 82 years old Clinical indication: Injury or trauma; Fall; Blunt trauma (contusions or hematomas) TECHNIQUE: Imaging protocol: Computed tomography of the thoracic spine without contrast. COMPARISON: CT CHEST PE CTA 03/25/2020 6:03 PM FINDINGS: Bones/joints: No acute fractures are identified. There is a severe dextroscoliosis of the upper and mid thoracic spine. Thoracic kyphosis is maintained. There is no new spondylolisthesis. There is no moderate or severe central canal stenosis. Soft tissues: No acute or suspicious abnormality in the paraspinal soft tissues. IMPRESSION: No acute fracture or traumatic subluxation in the thoracic spine. CT Lumbar Spine Without Contrast Exam date and time: 12/21/2022 5:51 AM Age: 82 years old Clinical indication: Injury or trauma; Fall; Blunt trauma (contusions or hematomas) TECHNIQUE: Imaging protocol: Computed tomography of the lumbar spine without contrast. COMPARISON: CT ABDOMEN PELVIS W 03/25/2020 5:09 PM FINDINGS: Bones/joints: No acute fractures are identified. There is a severe levoscoliosis of the lower thoracic and lumbar spine. Lumbar lordosis is maintained. There is no new spondylolisthesis. Multilevel findings: No moderate or severe central canal stenosis. Soft tissues: No acute or suspicious abnormality in the paraspinal soft tissues. IMPRESSION: No acute fracture or traumatic subluxation in the lumbar spine. HPI General Mode of arrival: ambulatory . Date/Time Provider Initiated Documentation: 12/21/22 06:52 . Limitations to Documentation: no limitations . Information obtained by: patient . HPI Narrative: Patient is an 82-year-old female with a history of pulmonary embolism on Xarelto, frequent falls, hypertension, COPD who presents from home for mechanical fall with head injury. Patient states she usually has difficulty sleeping throughout the night and was walking around around 3 AM to go to the bathroom and slipped on the carpeted stairs striking her upper back on the ground and the left side of her head on slate. She states she is having a mild left-sided headache. She does admit to some left-sided headache and midline upper back pain. She has not taken any medication for pain. She states she has been taking her Xarelto as prescribed. She states she hit her left elbow but is denying any significant pain in this area. She denies any chest pain, abdominal pain, or other new extremity pain. She denies any loss of consciousness or vomiting. Related Data Home Medications Medication Instructions Recorded Confirmed Spacer 1 ea miscellaneous #1 ea 03/21/13 12/02/22 docusate sodium 100 mg capsule 100 mg PO BID #180 tab-caps 03/21/13 12/21/22 (Colace) multivitamin 1 ea PO DAILY 03/21/13 12/21/22 triamcinolone acetonide 0.1 % 1 applic topical BID PRN 09/07/19 12/21/22 topical cream dermatitis #30 grams mometasone 0.1 % topical cream 1 applic topical DAILY 3 weeks #45 09/10/22 12/21/22 grams aiebxqwvbn-vajgobpmikkbj-qjhymcrm 1 cap PO DAILY PRN headache #30 10/07/22 12/21/22 50 mg-300 mg-40 mg capsule tabs rivaroxaban 20 mg tablet 20 mg PO DAILY #90 tabs 11/20/22 12/21/22 albuterol sulfate 90 mcg/actuation 2 puff inhalation Q6H PRN ##1 12/08/22 12/21/22 aerosol inhaler (ProAir HFA) bupropion HCl 150 mg tablet,12 hr 150 mg PO BID #180 tab-caps 12/08/22 12/21/22 sustained-release (Wellbutrin SR) levothyroxine 88 mcg tablet 88 mcg PO DAILY #90 tab-caps 12/08/22 12/21/22 (Synthroid) losartan 25 mg tablet 25 mg PO DAILY #90 tabs 12/08/22 12/21/22 losartan 50 mg tablet 50 mg PO DAILY #90 tabs 12/08/22 12/21/22 Previous Rx's Medication Instructions Recorded triamcinolone acetonide 0.1 % 1 applic topical BID PRN 09/07/19 topical cream dermatitis #30 grams mometasone 0.1 % topical cream 1 applic topical DAILY 3 weeks #45 09/10/22 grams kyxftuocwb-wjfcsiffdlmqk-yvckfuwd 1 cap PO DAILY PRN headache #30 10/07/22 50 mg-300 mg-40 mg capsule tabs rivaroxaban 20 mg tablet 20 mg PO DAILY #90 tabs 11/20/22 albuterol sulfate 90 mcg/actuation 2 puff inhalation Q6H PRN ##1 12/08/22 aerosol inhaler (ProAir HFA) bupropion HCl 150 mg tablet,12 hr 150 mg PO BID #180 tab-caps 12/08/22 sustained-release (Wellbutrin SR) levothyroxine 88 mcg tablet 88 mcg PO DAILY #90 tab-caps 12/08/22 (Synthroid) losartan 25 mg tablet 25 mg PO DAILY #90 tabs 12/08/22 losartan 50 mg tablet 50 mg PO DAILY #90 tabs 12/08/22 Allergies Allergy/AdvReac Type Severity Reaction Status Date / Time adhesive Allergy Mild Verified 12/21/22 04:58 Penicillins Allergy Unknown RASH Verified 12/21/22 04:58 Sulfa (Sulfonamide Allergy Unknown Verified 12/21/22 04:58 Antibiotics) apixaban Allergy rash Verified 12/21/22 04:58 nitrofurantoin AdvReac Unknown ABDOMINAL Verified 12/21/22 04:58 PAIN, ANOREXIA doxycycline AdvReac Nausea Verified 12/21/22 04:58 General Stated Complaint: HeadInjury TRAVON: 3 Review of Systems All systems reviewed & are unremarkable except as noted in HPI and below Constitutional Constitutional: Reports as per HPI, Denies chills, Denies fever(s) and Reports headache(s) Eyes Eyes: Denies blurry vision ENT Ears, Nose, Mouth, and Throat: Denies dizziness, Reports headache(s), Reports neck pain, Denies sore throat and Denies throat swelling Cardiovascular Cardiovascular: Denies chest pain and Denies dyspnea Respiratory Respiratory: Denies cough and Denies dyspnea Gastrointestinal Gastrointestinal: Denies abdominal pain, Denies diarrhea and Denies vomiting Genitourinary Genitourinary: Denies hematuria and Denies dysuria Musculoskeletal Musculoskeletal: Reports back pain, Reports neck pain and Denies numbness Integumentary/Breasts Skin/Breast: Denies lesions and Denies rash Neurologic Neurologic: Denies dizziness, Reports headache(s), Denies localized weakness and Denies numbness Allergic/Immunologic Allergic/Immunologic: Denies throat swelling PFSH All Active Problems (Updated 12/21/22 @ 07:38 by Grisel Pineda DO) Fall (Acute) Closed head injury without loss of consciousness (Acute) Back contusion (Acute) Confusion (Acute) Itching of ear (Acute) Pain, foot (Acute) Localized edema (Acute) Nail dystrophy (Acute) Degenerative joint disease of right knee (Acute) Daniel Lopez, also seeing Dr. Perez Hypothyroidism (Acute 08/27/94) Hypertension (Chronic) Pulmonary embolism (Chronic) Insomnia (Acute) Frequent falls (Acute) Venous insufficiency (chronic) (peripheral) (Acute 04/16/17) Peripheral neuralgia (Acute) toes only- Generalized osteoarthrosis (Acute) DJD right hip Urinary, incontinence, stress female (Acute) Medical History Candidal vulvovaginitis recurrent Cardiac murmur Echocardiogram ordered. 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 Daughter No problems noted. Maternal Grandfather No problems noted. Paternal Grandfather No problems noted. Maternal Grandmother No problems noted. Paternal Grandmother No problems noted. Sister , 9 months No problems noted. Social History (Updated 08/13/22 @ 11:02 by Flavia Oliveira) Smoking/Tobacco Use Status: Never Second Hand Exposure: Yes Smoking risk assessment performed?: Yes Alcohol Intake: current Alcohol Intake frequency: holidays/special occasions only Alcohol type: wine Drug use: Never Substance use type: does not use Caregiver/Support person: No Household members: none Housing: house Communication Needs: Corrective Lenses Do you need help understanding health information?: Rarely Pets and animals: No Sexually active: No Do you think of yourself as: straight/heterosexual Current gender identity: female What is your relationship status?: How often do you talk on the phone with friends or family?: once per week How often do you get together with friends or relatives?: twice per week How often do you attend latter day or islam services?: 4 or more times per year Do you belong to any clubs or organized social groups?: yes Panel score (0-1 are the most socially isolated patients): 3 What type of physical activity do you participate in: regular exercise Duration: 45-60 minutes/day Frequency: 3-4 times per week Deidra/Mosque: Jehovah'S Witness Special deidra needs: No Seatbelt use: always Helmet use: No Drive intox or ride w/intox local intermodal truck driver: No Do you feel safe at home: Yes Exam Const General: cooperative and no acute distress Orientation: alert, awake and oriented x3 HENMT Head: normal to inspection Ears: hearing grossly normal bilaterally, external ears normal and TM's normal bilaterally General nose exam: external nose normal Face and sinus: normal facial exam Eyes General: appearance normal, both eyes and all related structures Pupils: PERRL EOM: EOM intact bilaterally Neck Neck: normal visual inspection Chest Chest: normal inspection of the chest and no tenderness Resp Effort & Inspection: normal respiratory effort and able to speak in complete sentences Auscultation: clear to auscultation bilaterally Cardio Rate: regular rate Rhythm: regular rhythm GI Inspection: normal to inspection Palpation: soft, not firm, not rigid and nontender Auscultation: hypoactive bowel sounds Back/Spine/Pelvis Cervical Spine: cervical muscular tenderness (Left side) and cervical spinal tenderness Thoracic/Lumbar Spine: thoracic and lumbar spine normal to inspection, thoracic spinal tenderness and No lumbar spinal tenderness Pelvis: no pain with anterior-posterior compression Skin General skin exam: no rashes or lesions noted Neuro General: patient alert, patient awake and patient oriented x3 Cognition: normal cognition Speech: speech normal Motor: muscle tone normal throughout Sensory Exam: no sensory deficits noted Extrem General: normal to inspection and full ROM Other: Full range of motion of bilateral upper and lower extremities without significant pain or evidence of trauma. Psych Appearance: grossly normal Mental Status: mental status grossly normal Speech and Movement: speech and movement normal Affect: normal affect Course Vital Signs Vital signs: Vital Signs Temperature 97.4 F L 12/21/22 04:44 Pulse 78 12/21/22 04:44 Respiratory Rate 20 12/21/22 04:44 Blood Pressure 169/79 H 12/21/22 04:44 Pulse Oximetry 97 12/21/22 04:44 Temperature 97.4 F L 12/21/22 04:44 Temperature Source Oral 12/21/22 04:44 Pulse 78 12/21/22 04:44 Respiratory Rate 20 12/21/22 04:44 Respiratory Effort Normal 12/21/22 04:54 Blood Pressure 169/79 H 12/21/22 04:44 Blood Pressure Position Sitting 12/21/22 04:44 Pulse Oximetry 97 12/21/22 04:44 Oxygen Delivery Method Room Air 12/21/22 04:44 Oxygen Flow Rate 0 12/21/22 04:44 Pain Level 5 12/21/22 04:44
[2022-12-21] MEDS: Acetaminophen 500 MG TAB 1000 MG PO (06:09)
--- NOTE | 2022-12-21 07:20 | DI.VRAD_ITS ---
PROCEDURE INFORMATION: Exam: CT Head Without Contrast Exam date and time: 12/21/2022 5:39 AM Age: 82 years old Clinical indication: Injury or trauma; Fall; Blunt trauma (contusions or hematomas); Consciousness not specified TECHNIQUE: Imaging protocol: Computed tomography of the head without contrast. COMPARISON: CT HEAD WITHOUT CONTRAST 04/11/2017 2:42 PM FINDINGS: Brain: There is no evidence for large acute cortical infarct. No intracranial hemorrhage or extraaxial collection is identified. There is no significant intracranial mass effect. Intracranial atherosclerotic vascular calcifications are again present. Cerebral ventricles: The ventricles and sulci are moderately prominent, in concordance with moderate global atrophy. This is mildly progressive. Paranasal sinuses: Visualized sinuses are unremarkable. No fluid levels. Mastoid air cells: Visualized mastoid air cells are well aerated. Bones/joints: Unremarkable. No acute fracture. Soft tissues: There is a scalp contusion at the high left convexity. IMPRESSION: No CT evidence for acute intracranial abnormality. PROCEDURE INFORMATION: Exam: CT Cervical Spine Without Contrast Exam date and time: 12/21/2022 5:39 AM Age: 82 years old Clinical indication: Injury or trauma; Fall; Blunt trauma (contusions or hematomas); Consciousness not specified TECHNIQUE: Imaging protocol: Computed tomography of the cervical spine without contrast. COMPARISON: None provided. FINDINGS: Bones/joints: Vertebral body heights are intact. There are grade 1 spondylolistheses at C4-C5 and C5-C6. Spinal alignment is otherwise maintained. Productive changes are present about the dens and anterior C1 arch with adjacent degenerative ligamentous calcifications. The bones appear osteopenic. No acute fracture is identified. Discs/Spinal canal/Neural foramina: There is multilevel spondylosis with variable osteophytic encroachment of several neural foramina. CT is not optimal for the evaluation of the discs, neural foramina or spinal canal or cord. No significant spinal stenosis is evident. Lungs: There is some scarring at the lung apices. Pleural spaces: No apical pneumothorax is identified. Vasculature: Atherosclerotic vascular calcifications are noted. Soft tissues: The prevertebral soft tissues are not significantly swollen. IMPRESSION: 1. No acute fracture or dislocation identified. 2. Spondylosis without significant spinal stenosis evident. The discs and integrity of the cord could be better evaluated by means of MRI as clinically appropriate. 3. Apparent osteopenia. Dictated and Authenticated by: Christiano Castañeda MD. Ordering:AMAURY Recinos MD
--- NOTE | 2022-12-21 07:52 | DI.VRAD_ITS ---
PROCEDURE INFORMATION: Exam: CT Thoracic Spine Without Contrast Exam date and time: 12/21/2022 5:51 AM Age: 82 years old Clinical indication: Injury or trauma; Fall; Blunt trauma (contusions or hematomas) TECHNIQUE: Imaging protocol: Computed tomography of the thoracic spine without contrast. COMPARISON: CT CHEST PE CTA 03/25/2020 6:03 PM FINDINGS: Bones/joints: No acute fractures are identified. There is a severe dextroscoliosis of the upper and mid thoracic spine. Thoracic kyphosis is maintained. There is no new spondylolisthesis. There is no moderate or severe central canal stenosis. Soft tissues: No acute or suspicious abnormality in the paraspinal soft tissues. IMPRESSION: No acute fracture or traumatic subluxation in the thoracic spine. PROCEDURE INFORMATION: Exam: CT Lumbar Spine Without Contrast Exam date and time: 12/21/2022 5:51 AM Age: 82 years old Clinical indication: Injury or trauma; Fall; Blunt trauma (contusions or hematomas) TECHNIQUE: Imaging protocol: Computed tomography of the lumbar spine without contrast. COMPARISON: CT ABDOMEN PELVIS W 03/25/2020 5:09 PM FINDINGS: Bones/joints: No acute fractures are identified. There is a severe levoscoliosis of the lower thoracic and lumbar spine. Lumbar lordosis is maintained. There is no new spondylolisthesis. Multilevel findings: No moderate or severe central canal stenosis. Soft tissues: No acute or suspicious abnormality in the paraspinal soft tissues. IMPRESSION: No acute fracture or traumatic subluxation in the lumbar spine. Dictated and Authenticated by: Dianelys Wheeler MD. Ordering:AMAURY Recinos MD
== END 2022-12-21 08:20 | disposition home or self-care (01) ==
PROVIDERS: Emergency Provider Physician Assistant; PCP Nurse Practitioner Family
DX: S20.224A Contusion of middle back wall of thorax, initial encounter (principal); S09.90XA Unspecified injury of head, initial encounter; I10 Essential (primary) hypertension; J44.9 Chronic obstructive pulmonary disease, unspecified; Z79.01 Long term (current) use of anticoagulants; Z86.711 Personal history of pulmonary embolism; W01.198A Fall on same level from slipping, tripping and stumbling with subsequent striking against other object, initial encounter; Y93.01 Activity, walking, marching and hiking
CPT/HCPCS: 36415; 99284; 70450; 72125; 72128; 72131; 99282